=== PATIENT | male | born 1985 | race Caucasian/White ===

== ENCOUNTER 2018-04-04 09:15 | Day surgery (SDC) | payer SELFPAY ==
[~2018-04-04] VITALS: Ht 180.3 cm; Wt 95.3 kg
[2018-04-04] VITALS (11 sets, daily range): BP systolic 123–138; BP diastolic 68–83
[~2018-04-04 09:15] MED LIST: NKM; ceFAZolin sod 1 GM in NS 55 ML IVPB ONE
[2018-04-04] MEDS ORDERED: Bupivacaine 0.5% Inj 30 ml vial INJ ONE (09:58)
[2018-04-04] MEDS ORDERED: Bupivacaine w/Epi 0.5% 30ml Vial INJ ONE (09:58)
[2018-04-04] MEDS ORDERED: Bacitracin 50000 Units Vial ONE (09:59)
--- NOTE | 2018-04-04 10:12 | Pre-Procedure Note/Attestation ---
Pre-Procedure Note/Attestation Complete Prior to Procedure Planned Procedure: not applicable Attestation I attest that I discussed the nature of the procedure; its benefits; risks and complications; and alternatives (and the risks and benefits of such alternatives ), prior to the procedure, with the patient (or the patient's legal territory service representative). I attest that, if there was a reasonable possibility of needing a blood transfusion, the patient (or the patient's legal territory service representative) was given the [facility] standardized written summary, pursuant to the Otto Kellie Blood Safety Act ([place] Health and Safety Code # 1645, as amended). I attest that I re-evaluated the patient just prior to the surgery and that there has been no change in the patient's H&P, except as documented below: Benjamin Begum M.D. Apr 04, 2018 10:12
[2018-04-04] MEDS ORDERED: LR 1000ml ONE (11:00)
[2018-04-04] MEDS ORDERED: Sterile Water Irrig 1000ml IRRIG ONE (11:00)
[2018-04-04] MEDS ORDERED: Propofol 1,000mg/ 100ml btl IV ONE (11:00)
[2018-04-04] MEDS ORDERED: Dexamethasone 4mg/ml vial ONE (11:06)
[2018-04-04] MEDS ORDERED: Lidocaine 1% MPF 10mg/ml 5ml ONE (11:06)
[2018-04-04] MEDS ORDERED: LR 1000ml 1,000 ML IVLG SCH (11:25)
[2018-04-04] MEDS ORDERED: oxyCODONE HCL/Acetaminophen 5/325mg ORAL PRN (11:30)
[2018-04-04] MEDS ORDERED: Meperidine 50mg/ml Inj(FOR RIGORS ONLY) IVP PRN (11:30)
[2018-04-04] MEDS ORDERED: Metoclopramide 10mg/2ml Inj IVP PRN (11:30)
[2018-04-04] MEDS ORDERED: HYDROcodone/Acetamin 7.5/325 tab ORAL PRN (11:30)
[2018-04-04] MEDS ORDERED: Atropine Sulfate 0.4mg/ml inj IVP PRN (11:30)
[2018-04-04] MEDS ORDERED: LORazepam Inj 2mg/ml 1ml IV PRN (11:30)
[2018-04-04] MEDS ORDERED: Ketorolac 30mg Inj IV PRN ×2 (11:30)
[2018-04-04] MEDS ORDERED: Acetaminophen (Non formulary) 100 ML IV SCH (11:30)
[2018-04-04] MEDS ORDERED: Hydromorphone 0.5mg/0.5ml inj IVP PRN (11:30)
[2018-04-04] MEDS ORDERED: Norco 5mg/325mg tab ORAL PRN (11:30)
[2018-04-04] MEDS ORDERED: fentaNYL 100 mcg/2 mL IV PRN (11:30)
[2018-04-04] MEDS ORDERED: Midazolam 2mg/2ml Inj IVP PRN (11:30)
[2018-04-04] MEDS ORDERED: DiphenhydrAMINE 50mg/ml Inj IVP PRN (11:30)
--- NOTE | 2018-04-04 11:30 | Anethesia Preoperative Eval ---
Anesthesia Pre-op PMH/ROS General Date of Evaluation: Apr 04, 2018 Time of Evaluation: 10:54 Anesthesiologist: Tamiko ASA Score: ASA 2 Mallampati Score Class I : Soft palate, uvula, fauces, pillars visible Class II: Soft palate, uvula, fauces visible Class III: Soft palate, base of uvula visible Class IV: Only hard plate visible Mallampati Classification: Class II Surgeon: Tomy Diagnosis: Numb Dorsal Area Penis Surgical Procedure: Release Dorsal Sensory Nerve of Penis Anesthesia History: none Family History: no anesthesia problems Allergies: Coded Allergies: No Known Allergies (Unverified , 04/01/18) Medications: see eMAR Patient NPO?: Yes Past Medical History Gastrointestinal/Genitourinary: Reports: GERD PSxH Narrative: Penile Sx Anesthesia Pre-op Phys. Exam Physician Exam Last Vital Signs Date Time Temp Pulse Resp B/P (MAP) Pulse Ox O2 Delivery O2 Flow Rate FiO2 04/04/18 10:14 Room Air 04/04/18 10:12 97.6 67 18 123/70 97 Constitutional: NAD Neurologic: CN 2-12 intact Cardiovascular: RRR Respiratory: CTA Gastrointestinal: S/NT/ND Airway Exam Mallampati Score: Class II MO: full ROM: full Teeth: intact Anesthesia Pre-op A/P Risk Assessment & Plan Assessment: ASA 2 Plan: GA Status Change Before Surgery: No Pre-Antibiotics Dru Gram Ancef IV Given Within 1 Hr of Incision: Yes Time Given: 11:04 Bernard Morrison MD Apr 04, 2018 11:30
--- NOTE | 2018-04-04 11:43 | Immediate Post-Op Evaluation ---
Immediate Post-Op Evalulation Immediate Post-Op Evalulation Procedure: Release Dorsal Sensory Nerve of Penis Date of Evaluation: Apr 04, 2018 Time of Evaluation: 12:49 IV Fluids: 600 LR Blood Products: 0 Estimated Blood Loss: 7 Urinary Output: 0 Blood Pressure Systolic: 138 Blood Pressure Diastolic: 74 Pulse Rate: 71 Respiratory Rate: 16 O2 Sat by Pulse Oximetry: 100 Temperature (Fahrenheit): 98.3 Pain Score (1-10): 2 Nausea: No Vomiting: No Complications 0 Patient Status: awake, reacts, patent, none Hydration Status: adequate Dru Gram Ancef IV Given Within 1 Hr of Incision: Yes Time Given: 11:04 Bernard Morrison MD Apr 04, 2018 11:43
--- NOTE | 2018-04-04 11:44 | 48 Hour Post Anesthesia Eval ---
Post Anesthesia Evaluation Procedure: Release Dorsal Sensory Nerve of Penis Date of Evaluation: Apr 04, 2018 Time of Evaluation: 14:53 Blood Pressure Systolic: 128 0: 64 Pulse Rate: 67 Respiratory Rate: 21 Temperature (Fahrenheit): 98.5 O2 Sat by Pulse Oximetry: 100 Airway: patent Nausea: No Vomiting: No Pain Intensity: 1 Hydration Status: adequate Cardiopulmonary Status: Stable Mental Status/LOC: patient returned to baseline Follow-up Care/Observations: 0 Post-Anesthesia Complications: 0 Follow-up care needed: ready to discharge Bernard Morrison MD Apr 04, 2018 11:43
[2018-04-04] MEDS ORDERED: NS Irrig 1000ml IRRIG ONE (11:47)
--- NOTE | 2018-04-04 12:41 | Brief Operative Note ---
Immediate Post Operative Note Operative Note Pre-op Diagnosis: Compression of dorsal sensory nerve of penis Procedure: Decompress dorsal sensory nerve of penis Post-op Diagnosis: Same Post-op Diagnosis: same as pre-op Surgeon: Benjamin Begum MD Anesthesiologist: Tamiko Anesthesia: general Specimen: none Complications: none Condition: stable Fluids: Per anesthesia record Estimated Blood Loss: minimal Drains: none Implant(s) used?: No Benjamin Begum M.D. Apr 04, 2018 12:41
--- NOTE | 2018-04-04 12:45 | Discharge Instructions ---
Discharge Instructions Discharge Instructions Call MD/Return to Hospital if: Fever over 101 degrees or bleeding from wound Diet: regular Resume Normal Activity?: No Activity: other Pneumonia Vaccine: vaccine not indicated Influenza Vaccine (Nov to Apr): vaccine not indicated For Surgical Patients Clean and Dry: surgical site Dressing Care: keep dry and clean Elevate: other May shower: No For Congestive Heart Failure Reminder Report to your physician any weight gain of 5 pounds or more in one week. Benjamin Begum M.D. Apr 04, 2018 12:45
--- NOTE | 2018-04-05 03:45 | Operative Note - Dictated ---
DATE OF OPERATION: 04/04/2018 PREOPERATIVE DIAGNOSIS: Compression of the dorsal sensory nerve of penis. POSTOPERATIVE DIAGNOSIS: Compression of the dorsal sensory nerve of penis. PROCEDURE: Decompression of dorsal sensory nerve of penis. SURGEON: Benjamin Begum M.D. ANESTHESIA: General by . BLOOD LOSS: Less than 5 mL. COMPLICATIONS: None. DRAINS: None. INDICATION FOR SURGERY: The patient had previously undergone grafting to increase the circumference of his penis. He had normal sense of glans of the penis, but did have some sensation. He wished to undergo decompression of the nerve by creating an incision in the graft and spreading them apart in order to create space to the nerve. He was aware of all potential risks complications and understood and accepted. DESCRIPTION OF PROCEDURE: The patient was identified preoperatively. He was placed supine on the operating table. He was started on general anesthesia. Marcaine with epinephrine was infiltrated in the post-incision site. Sterile prep and drape was performed. Time-out was performed. Surgery was begun by incising the marked surgical site in a vertical fashion and incision was carried down to the grafts on the dorsum of the penis. The grafts were intraoperatively divided in the midline and hemostat from proximal to distal creating a trough of approximately 3 mm in width. Segment of graft was dissected to prevent it from crawling back into the trough. The wound was irrigated copiously with saline. There was no bleeding. The wound was closed with 2-0 Monocryl followed by Monocryl. Several 5-0 chromic were placed in the skin followed by Dermabond, Steri-Strips, and Tegaderm dressing dorsally. The penis was wrapped with Coban soft dressing. The patient was taken and awoken in the operating room . Benjamin Begum MD DR: /NE JOB#: [id number] CC:
== END 2018-04-04 14:45 | disposition home or self-care (01) ==
LOC: SUR 09:15
DX: G58.8 Other specified mononeuropathies (principal); K21.9 Gastro-esophageal reflux disease without esophagitis
CPT/HCPCS: 64722; J0690; J1100; J2250; J2405; J2704; J3490; 94003; 94150